=== PATIENT | male | born 1950 | race Caucasian/White ===

== ENCOUNTER 2021-04-21 07:56 | Day surgery (SDC) | payer MEDICARE, OTHER ==
[~2021-04-21] VITALS: Ht 198.1 cm; Wt 126.5 kg
[2021-04-21] VITALS (9 sets, daily range): BP systolic 125–153; BP diastolic 64–101
[2021-04-21] MEDS ORDERED: GLUC1TAB9 PO (08:40)
[2021-04-21] MEDS ORDERED: TROS20TA4 PO (08:40)
[2021-04-21] MEDS ORDERED: MULT-1085 PO (08:40)
[2021-04-21] MEDS ORDERED: CARV25TA2 PO (08:40)
[2021-04-21] MEDS ORDERED: normal saline 1,000 ML IV SCH (08:40)
[2021-04-21] MEDS ORDERED: VITAMIN D3 PO (08:40)
[2021-04-21] MEDS ORDERED: AMIO200T61 PO (08:40)
[2021-04-21] MEDS ORDERED: RIVA20TA PO (08:40)
[2021-04-21] MEDS ORDERED: SAW1CAPS5 PO (08:40)
[2021-04-21] MEDS ORDERED: AZIL40TA PO (08:40)
[2021-04-21] MEDS ORDERED: diphenhydrAMINE 25mg capsule PO PRN (08:40)
[2021-04-21] MEDS ORDERED: ATOR40TA72 PO (08:40)
[2021-04-21 09:08] LABS: BASOPHILS # (AUTO) 0.1 X10'3 (0-0.2); BASOPHILS % (AUTO) 0.8 % (0-1); EOSINOPHILS # (AUTO) 0.2 X10'3 (0-0.9); EOSINOPHILS % (AUTO) 3.5 % (0-6); HEMATOCRIT 45.1 % (42.0-52.0); LYMPHOCYTES # (AUTO) 1.1 X10'3 (1.1-4.8); MEAN CORPUSCULAR HEMOGLOBIN 29.6 PG (27.0-31.0); MEAN CORPUSCULAR HGB CONC 33.3 g/dL (33.0-36.5); MEAN PLATELET VOLUME 10.2 FL (7.4-10.4); MONOCYTES # (AUTO) 0.6 X10'3 (0-0.9); MONOCYTES % (AUTO) 8.4 % (2-12); NEUTROPHILS # (AUTO) 4.9 X10'3 (1.8-7.7); NEUTROPHILS % (AUTO) 71.3 % (42-75); PLATELET COUNT 166 X10'3 (140-440); RED BLOOD COUNT 5.06 X10'6 (4.70-6.10); RED CELL DISTRIBUTION WIDTH 13.3 % (11.5-14.5); WHITE BLOOD COUNT 6.9 X10'3 (4.5-11.0)
[2021-04-21 09:19] LABS: ALBUMIN 4.1 G/DL (3.4-5.0); ANION GAP 9 (8-16); BLOOD UREA NITROGEN 16 MG/DL (7-18); BUN/CREATININE RATIO 14.7 (5.4-32.0); CALCIUM 9.1 MG/DL (8.5-10.1); CHLORIDE 109 MMOL/L (99-107); CREATININE 1.09 MG/DL (0.60-1.10); GLUCOSE 109 MG/DL (70-104); MAGNESIUM 2.1 MG/DL (1.5-2.4); POTASSIUM 3.9 MMOL/L (3.5-5.1); SODIUM 145 MMOL/L (135-145); TOTAL CARBON DIOXIDE 26.6 MMOL/L (24-32); eGFR 66 ML/MIN
[2021-04-21] MEDS ORDERED: fentaNYL/PF 50MCG/1 ML 2ML syringe ONE (09:54)
[2021-04-21] MEDS ORDERED: LIDOcaine 1% (10mg/ml)w/preservative injection 20ml MDV ONE (09:54)
[2021-04-21] MEDS ORDERED: midazolam 1 mg/ML 2ml injection ONE (09:54)
[2021-04-21] MEDS ORDERED: verapamil 2.5 mg/ml inj IV ONE (09:54)
[2021-04-21] MEDS ORDERED: nitroGLYCERIN-Tridil 50MG/D5W 250 ML IV ONE (09:54)
[2021-04-21] MEDS ORDERED: iohexol 350 MG/ML 50ML vial IV ONE (09:55)
[2021-04-21] MEDS ORDERED: iohexol 350MG/ML 100ml bottle IV ONE (09:55)
[2021-04-21] MEDS ORDERED: heparin 1,000unit/ml 10ml vial 10 ML ONE (09:55)
[2021-04-21] MEDS ORDERED: acetaminophen 325mg tablet PO PRN (12:00)
[2021-04-21] MEDS ORDERED: ondansetron/PF 4mg/2ml inj IV PRN (12:00)
[2021-04-21] MEDS ORDERED: proCHLORperazine 10 MG/2 ml inj IV PRN (12:00)
[2021-04-21] MEDS ORDERED: HYDROcodone/acetaminophen 5mg/325mg tablet PO PRN (12:00)
[2021-04-21] MEDS ORDERED: HYDROcodone/acetaminophen 10/325mg tab PO PRN (12:00)
== END 2021-04-21 15:00 | disposition home or self-care (01) ==
LOC: SSTAY O 07:56
PROVIDERS: ATTEND Internal Medicine Cardiovascular Disease
DX: R94.39 Abnormal result of other cardiovascular function study (principal); R07.89 Other chest pain; R06.09 Other forms of dyspnea; I42.0 Dilated cardiomyopathy; I47.2 Ventricular tachycardia; I48.0 Paroxysmal atrial fibrillation; I10 Essential (primary) hypertension; E78.5 Hyperlipidemia, unspecified; I49.01 Ventricular fibrillation; G47.30 Sleep apnea, unspecified; Z95.810 Presence of automatic (implantable) cardiac defibrillator; Z79.899 Other long term (current) drug therapy; Z86.73 Personal history of transient ischemic attack (TIA), and cerebral infarction without residual deficits; Z88.8 Allergy status to other drugs, medicaments and biological substances
CPT/HCPCS: 36415; 80048; 83735; 85025; 85610; 93005; 93458; 99152; 99153; C1760; C1769; C1894; J1644; J2001; J2250; J3010; J7030; Q0163; Q9967; A4620; A6258; J3490

== ENCOUNTER 2021-06-27 08:56 | Day surgery (SDC) | payer MEDICARE, OTHER ==
[2021-06-27] VITALS (8 sets, daily range): BP systolic 113–148; BP diastolic 73–93
[~2021-06-27] VITALS: Ht 193 cm; Wt 126.0 kg
[~2021-06-27 08:56] MED LIST: AMIO200T61 PO; ATOR40TA72 PO; AZIL40TA PO; CARV25TA2 PO; GLUC1TAB9 PO; MULT-1085 PO; RIVA20TA PO; SAW1CAPS5 PO; TROS20TA4 PO; VITAMIN D3 PO
[2021-06-27] MEDS ORDERED: cefazolin/dext.iso 2gm/100ml 100 ML IV ONE (09:30)
[2021-06-27] MEDS ORDERED: ceFAZolin 1GM/D5W- ADD-VANTAGE 50 ML IV ONE (09:30)
[2021-06-27] MEDS ORDERED: SACU1TAB PO (10:01)
[2021-06-27] MEDS ORDERED: ALPR-624 PO (10:01)
[2021-06-27 10:35] LABS: BASOPHILS % (AUTO) 0.8 % (0-1); EOSINOPHILS # (AUTO) 0.3 X10'3 (0-0.9); EOSINOPHILS % (AUTO) 5.1 % (0-6); HEMATOCRIT 45.4 % (42.0-52.0); HEMOGLOBIN 15.1 g/dl (14.0-17.9); LYMPHOCYTES % (AUTO) 20.7 % (21-51); MEAN CORPUSCULAR HEMOGLOBIN 29.7 PG (27.0-31.0); MEAN CORPUSCULAR HGB CONC 33.2 g/dL (33.0-36.5); MEAN CORPUSCULAR VOLUME 89.4 FL (78-98); MEAN PLATELET VOLUME 9.2 FL (7.4-10.4); MONOCYTES # (AUTO) 0.4 X10'3 (0-0.9); MONOCYTES % (AUTO) 7.7 % (2-12); NEUTROPHILS # (AUTO) 3.3 X10'3 (1.8-7.7); NEUTROPHILS % (AUTO) 65.7 % (42-75); PLATELET COUNT 162 X10'3 (140-440); RED BLOOD COUNT 5.08 X10'6 (4.70-6.10); RED CELL DISTRIBUTION WIDTH 13.9 % (11.5-14.5)
[2021-06-27 10:56] LABS: ANION GAP 10 (8-16); BLOOD UREA NITROGEN 16 MG/DL (7-18); BUN/CREATININE RATIO 14.5 (5.4-32.0); CALCIUM 8.6 MG/DL (8.5-10.1); CHLORIDE 108 MMOL/L (99-107); GLUCOSE 104 MG/DL (70-104); MAGNESIUM 2.4 MG/DL (1.5-2.4); SODIUM 143 MMOL/L (135-145); TOTAL CARBON DIOXIDE 25.1 MMOL/L (24-32); eGFR 66 ML/MIN
[2021-06-27] MEDS ORDERED: vancomycin 1,000mg inj ONE (11:08)
[2021-06-27] MEDS ORDERED: iohexol 350 MG/ML 50ML vial IV ONE (11:08)
[2021-06-27] MEDS ORDERED: midazolam 1 mg/ML 2ml injection ONE ×6 (11:08→13:00)
[2021-06-27] MEDS ORDERED: fentaNYL/PF 50MCG/1 ML 2ML syringe ONE ×2 (11:08→13:00)
[2021-06-27] MEDS ORDERED: LIDOcaine 1% w/EPI 1:100,000 30ml vial (MDV) ONE (11:09)
[2021-06-27] MEDS ORDERED: HYDROmorphone 1 mg/ml syringe ONE (13:01)
[2021-06-27] MEDS ORDERED: normal saline 1000ml 1,000 ML IV SCH (13:50)
[2021-06-27] MEDS ORDERED: ketorolac tromethamine 15mg/ml inj. IV ONE (13:50)
== END 2021-06-27 16:25 | disposition home or self-care (01) ==
LOC: SSTAY O 08:56
PROVIDERS: ATTEND Internal Medicine Cardiovascular Disease
DX: Z45.02 Encounter for adjustment and management of automatic implantable cardiac defibrillator (principal); I42.0 Dilated cardiomyopathy; I47.2 Ventricular tachycardia; I49.01 Ventricular fibrillation; I44.2 Atrioventricular block, complete; I48.0 Paroxysmal atrial fibrillation; I10 Essential (primary) hypertension; E78.5 Hyperlipidemia, unspecified; G47.30 Sleep apnea, unspecified; Z79.899 Other long term (current) drug therapy; Z86.73 Personal history of transient ischemic attack (TIA), and cerebral infarction without residual deficits; Z98.890 Other specified postprocedural states; Z88.8 Allergy status to other drugs, medicaments and biological substances
CPT/HCPCS: 33225; 33264; 36415; 71045; 80048; 83735; 85025; 85610; 93005; 99152; 99153; C1769; C1882; C1894; C1900; J0690; J1170; J2250; J3010; J3370; Q9967; A4565; A4620; A6258

== ENCOUNTER 2021-07-11 20:00 | Emergency (ER) | payer MEDICARE, OTHER ==
[~2021-07-11] VITALS: Ht 195.6 cm; Wt 127.3 kg
[~2021-07-11 20:00] MED LIST changes: +ALPR-624 PO; -AZIL40TA PO; +SACU1TAB PO
[2021-07-11 20:17] LABS: BASOPHILS % (AUTO) 0.6 % (0-1); EOSINOPHILS # (AUTO) 0.3 X10'3 (0-0.9); EOSINOPHILS % (AUTO) 5.6 % (0-6); HEMATOCRIT 42.6 % (42.0-52.0); HEMOGLOBIN 14.3 g/dl (14.0-17.9); LYMPHOCYTES # (AUTO) 1.3 X10'3 (1.1-4.8); LYMPHOCYTES % (AUTO) 21.6 % (21-51); MEAN CORPUSCULAR HEMOGLOBIN 29.8 PG (27.0-31.0); MEAN CORPUSCULAR HGB CONC 33.7 g/dL (33.0-36.5); MEAN CORPUSCULAR VOLUME 88.4 FL (78-98); MONOCYTES # (AUTO) 0.5 X10'3 (0-0.9); MONOCYTES % (AUTO) 9.1 % (2-12); NEUTROPHILS # (AUTO) 3.8 X10'3 (1.8-7.7); NEUTROPHILS % (AUTO) 63.1 % (42-75); PLATELET COUNT 171 X10'3 (140-440); RED BLOOD COUNT 4.81 X10'6 (4.70-6.10); RED CELL DISTRIBUTION WIDTH 13.5 % (11.5-14.5)
--- NOTE | 2021-07-11 20:36 | NUR ---
[employer] PACEMAKER INTERREGATED PER [facility]. PER [employer] REP, NO ABNORMALITIES NOTED.
[2021-07-11 20:52] LABS: ANION GAP 3 (8-16); BLOOD UREA NITROGEN 18 MG/DL (7-18); BUN/CREATININE RATIO 16.7 (5.4-32.0); CALCIUM 8.6 MG/DL (8.5-10.1); CHLORIDE 110 MMOL/L (99-107); CREATININE 1.08 MG/DL (0.60-1.10); GLUCOSE 112 MG/DL (70-104); MAGNESIUM 2.3 MG/DL (1.5-2.4); POTASSIUM 3.6 MMOL/L (3.5-5.1); SODIUM 141 MMOL/L (135-145); TOTAL CARBON DIOXIDE 27.8 MMOL/L (24-32); eGFR 67 ML/MIN
[2021-07-11 20:53] LABS: ALANINE AMINOTRANSFERASE 38 U/L (12-78); ALBUMIN 3.5 G/DL (3.4-5.0); ALBUMIN/GLOBULIN RATIO 1.1 (1.1-1.5); ALKALINE PHOSPHATASE 88 IU/L (46-116); ASPARTATE AMINO TRANSFERASE 19 U/L (10-37); BILIRUBIN,TOTAL 0.6 MG/DL (0.1-1.0); TOTAL PROTEIN 6.8 G/DL (6.4-8.2)
[2021-07-11] MEDS: metoprolol tartrate 50mg tablet PO ONE ×2 (21:38→21:43)
[2021-07-11] MEDS: LORazepam 1 MG tablet PO ONE ×2 (21:38→21:42)
[2021-07-11 21:50] VITALS: BP 147/88
== END 2021-07-11 21:51 | disposition home or self-care (01) ==
LOC: ER 20:00
DX: Z45.018 Encounter for adjustment and management of other part of cardiac pacemaker (principal); R07.89 Other chest pain; R06.02 Shortness of breath; F41.9 Anxiety disorder, unspecified; Z72.89 Other problems related to lifestyle; Z88.8 Allergy status to other drugs, medicaments and biological substances; Z79.899 Other long term (current) drug therapy
CPT/HCPCS: 36415; 71045; 80053; 83735; 83880; 84484; 85025; 85610; 93005; 99285